=== PATIENT | male | born 1955 | race Caucasian/White ===

== ENCOUNTER 2022-09-22 11:03 | Inpatient (IN) | payer MEDICARE, MEDICAID ==
[~2022-09-22] VITALS: Ht 172.7 cm; Wt 81.3 kg
[2022-09-22] MEDS ORDERED: PANTOPRAZOLE SODIUM 40 MG/VIAL IV ONE (12:15)
[2022-09-22 12:24] LABS: BASOPHILS % 0.4 % (0.0-2.0); EOSINOPHILS % 5.8 % (0.0-5.0); HEMATOCRIT. 45.5 % (42.0-52.0); HEMOGLOBIN. 15.3 g/dL (14.0-18.0); LYMPHOCYTES % 15.8 % (20.0-50.0); MEAN CORPUSCULAR HEMOGLOBIN 32.1 pg (28.0-32.0); MEAN CORPUSCULAR VOLUME 95.7 fL (80.0-94.0); MEAN PLATELET VOLUME 9.9 fl (7.4-10.4); MONOCYTES % 6.5 % (2.0-8.0); NEUTROPHILS % 71.5 % (40.0-76.0); PLATELET 146 x1000/uL (130-400); RED BLOOD CELL COUNT 4.76 mill/uL (4.7-6.1); RED CELL DISTRIBUTION WIDTH 13.5 % (11.6-14.6)
[2022-09-22 12:26] LABS: CHLORIDE 107 mEq/L (98-107)
[2022-09-22] MEDS ORDERED: ASPIRIN 81MG TABLET PO ONE (14:45)
[2022-09-22 15:31] LABS: INR 1.1; PROTHROMBIN TIME 11.9 sec (9.6-11.0)
[2022-09-22 15:41] LABS: CLARITY URINE CLEAR (CLEAR); COLOR URINE YELLOW (YELLOW); KETONES URINE NEGATIVE (NEGATIVE); LEUKOCYTE ESTERASE URINE NEGATIVE (NEGATIVE); NITRITE URINE NEGATIVE (NEGATIVE); OCCULT BLOOD URINE NEGATIVE (NEGATIVE); PROTEIN URINE NEGATIVE (NEGATIVE); SPECIFIC GRAVITY URINE 1.016 (1.005-1.030); UROBILINOGEN URINE 0.2 E.U./dL (0.2-1.0)
[2022-09-22] MEDS ORDERED: DIPHENHYDRAMINE 50MG/ML VIAL IV PRN (18:15)
[2022-09-22] MEDS ORDERED: IPRATROPIUM/ALBUTEROL 0.5-3(2.5)MG/3ML NEB HHN PRN (18:15)
[2022-09-22] MEDS ORDERED: ACETAMINOPHEN 325MG TABLET PO PRN (18:15)
[2022-09-22] MEDS ORDERED: ONDANSETRON HCL 4MG/2ML INJ IV PRN (18:15)
[2022-09-22] MEDS ORDERED: PANTOPRAZOLE SODIUM 40 MG/VIAL IV NR (18:30)
[2022-09-22 20:00] VITALS: BP 140/76
[2022-09-22] MEDS: ENOXAPARIN 40MG/0.4ML SYR SUBCUT SCH (22:04)
[2022-09-22] MEDS ORDERED: DEXTROSE 50% WATER 50ML SYRINGE IV PRN (23:00)
[2022-09-23] VITALS: BP 126/69
[2022-09-23 04:00] VITALS: BP 134/74
[2022-09-23] MEDS: ENOXAPARIN 40MG/0.4ML SYR SUBCUT SCH (06:14)
[2022-09-23 06:42] LABS: BASOPHILS % 0.4 % (0.0-2.0); EOSINOPHILS % 8.5 % (0.0-5.0); HEMATOCRIT. 44.6 % (42.0-52.0); HEMOGLOBIN. 15.1 g/dL (14.0-18.0); LYMPHOCYTES % 30.7 % (20.0-50.0); MEAN CORPUSCULAR HEMOGLOBIN 31.8 pg (28.0-32.0); MEAN PLATELET VOLUME 9.4 fl (7.4-10.4); MONOCYTES % 8.8 % (2.0-8.0); NEUTROPHILS % 51.6 % (40.0-76.0); PLATELET 146 x1000/uL (130-400); RED BLOOD CELL COUNT 4.74 mill/uL (4.7-6.1); RED CELL DISTRIBUTION WIDTH 13.1 % (11.6-14.6)
[2022-09-23 06:53] LABS: CHLORIDE 107 mEq/L (98-107)
[2022-09-23] MEDS: BLOOD SUGAR DIAGNOSTIC STRIP TEST SCH ×4 (06:53→20:59)
[2022-09-23] MEDS: INSULIN LISPRO 100 UNITS/ML SUBCUT SCH ×4 (07:20→20:59)
[2022-09-23 08:00] VITALS: BP 129/75
[2022-09-23] MEDS ORDERED: ATROPINE SULFATE 1MG/ML VIAL IV PRN (08:30)
[2022-09-23 09:18] LABS: T4 FREE 1.64 ng/dL (0.76-1.46)
[2022-09-23] MEDS ORDERED: LEVO125T8 PO (11:03)
[2022-09-23] MEDS ORDERED: BENA-8 PO (11:03)
[2022-09-23] MEDS ORDERED: FURO20TA4 PO (11:03)
[2022-09-23] MEDS ORDERED: METF-416 PO (11:03)
[2022-09-23] MEDS ORDERED: ATOR-2 PO (11:03)
[2022-09-23] MEDS ORDERED: ALBU18HF2 IH (11:03)
[2022-09-23] MEDS ORDERED: CARV25TA47 PO (11:03)
[2022-09-23] MEDS ORDERED: XAR15 PO (11:03)
[2022-09-23] MEDS ORDERED: TAMSULOSIN (11:03)
[2022-09-23 12:00] VITALS: BP 131/68
[2022-09-23 16:00] VITALS: BP 132/58
[2022-09-23] MEDS: FUROSEMIDE 20MG TABLET PO SCH (17:49)
[2022-09-23] MEDS: RIVAROXABAN 15 MG TABLET PO SCH (17:50)
[2022-09-23] MEDS: LEVOTHYROXINE SODIUM 125MCG TABLET PO SCH (17:50)
[2022-09-23 20:00] VITALS: BP 136/75
[2022-09-24 00:08] VITALS: BP 103/48
[2022-09-24 04:00] VITALS: BP 101/41
[2022-09-24] MEDS: BLOOD SUGAR DIAGNOSTIC STRIP TEST SCH ×4 (06:29→20:16)
[2022-09-24] MEDS: INSULIN LISPRO 100 UNITS/ML SUBCUT SCH ×4 (06:29→20:17)
[2022-09-24] MEDS: LEVOTHYROXINE SODIUM 125MCG TABLET PO SCH (06:29)
[2022-09-24 08:00] VITALS: BP 123/64
[2022-09-24] MEDS: FUROSEMIDE 20MG TABLET PO SCH (08:35)
[2022-09-24 12:00] VITALS: BP 116/56
[2022-09-24 16:00] VITALS: BP 114/58
[2022-09-24] MEDS: RIVAROXABAN 15 MG TABLET PO SCH (16:58)
[2022-09-24 20:00] VITALS: BP 146/78
[2022-09-25] VITALS: BP 107/63
[2022-09-25 04:00] VITALS: BP 121/63
[2022-09-25] MEDS: LEVOTHYROXINE SODIUM 125MCG TABLET PO SCH (06:44)
[2022-09-25] MEDS: INSULIN LISPRO 100 UNITS/ML SUBCUT SCH ×4 (06:44→20:46)
[2022-09-25] MEDS: BLOOD SUGAR DIAGNOSTIC STRIP TEST SCH ×4 (06:44→20:46)
[2022-09-25 06:47] LABS: BASOPHILS % 0.3 % (0.0-2.0); EOSINOPHILS % 7.6 % (0.0-5.0); HEMATOCRIT. 44.7 % (42.0-52.0); HEMOGLOBIN. 15.4 g/dL (14.0-18.0); LYMPHOCYTES % 29.9 % (20.0-50.0); MEAN CORPUSCULAR HEMOGLOBIN 32.4 pg (28.0-32.0); MEAN CORPUSCULAR VOLUME 93.8 fL (80.0-94.0); MEAN PLATELET VOLUME 9.3 fl (7.4-10.4); MONOCYTES % 8.2 % (2.0-8.0); PLATELET 175 x1000/uL (130-400); RED BLOOD CELL COUNT 4.76 mill/uL (4.7-6.1); RED CELL DISTRIBUTION WIDTH 13.5 % (11.6-14.6)
[2022-09-25 06:52] LABS: CHLORIDE 107 mEq/L (98-107)
[2022-09-25 08:00] VITALS: BP 123/69
[2022-09-25] MEDS: FUROSEMIDE 20MG TABLET PO SCH (08:27)
[2022-09-25 12:00] VITALS: BP 132/69
[2022-09-25 16:00] VITALS: BP 110/54
[2022-09-25] MEDS: RIVAROXABAN 15 MG TABLET PO SCH (16:52)
[2022-09-25 20:27] VITALS: BP 147/76
[2022-09-26] VITALS (7 sets, daily range): BP systolic 124–146; BP diastolic 58–86
[2022-09-26] MEDS: INSULIN LISPRO 100 UNITS/ML SUBCUT SCH ×4 (06:42→20:56)
[2022-09-26] MEDS: BLOOD SUGAR DIAGNOSTIC STRIP TEST SCH ×4 (06:42→20:56)
[2022-09-26] MEDS: LEVOTHYROXINE SODIUM 125MCG TABLET PO SCH (06:42)
[2022-09-26] MEDS: FUROSEMIDE 20MG TABLET PO SCH (09:53)
[2022-09-26] MEDS: RIVAROXABAN 15 MG TABLET PO SCH (16:53)
[2022-09-27] VITALS: BP 134/78
== END 2022-09-27 01:03 | disposition short-term general hospital (02) | DRG 281 ==
LOC: ER 11:03 → 3WST 17:16 → EDBEDREQTM 17:28 → EDBEDREQ 17:28 → ENRESERV 17:59
PROVIDERS: ADMIT Family Medicine Adult Medicine; ATTEND Family Medicine Adult Medicine
DX: T82.897A Other specified complication of cardiac prosthetic devices, implants and grafts, initial encounter (principal); I21.4 Non-ST elevation (NSTEMI) myocardial infarction; I50.22 Chronic systolic (congestive) heart failure; E11.9 Type 2 diabetes mellitus without complications; I11.0 Hypertensive heart disease with heart failure; Z20.822 Contact with and (suspected) exposure to COVID-19; I25.10 Atherosclerotic heart disease of native coronary artery without angina pectoris; Z95.5 Presence of coronary angioplasty implant and graft; Z95.810 Presence of automatic (implantable) cardiac defibrillator; Y71.2 Prosthetic and other implants, materials and accessory cardiovascular devices associated with adverse incidents; Y92.89 Other specified places as the place of occurrence of the external cause
CPT/HCPCS: 36415; 71045; 74176; 80048; 80053; 81003; 82962; 83880; 84439; 84443; 84484; 85025; 87426; 87804; 93005; 93306; 93970; 99285; C9113; C9803; J1650; J1815